=== PATIENT | male | born 1975 ===

== ENCOUNTER 2017-08-29 08:32 | Emergency (ER) | payer MEDICAID ==
[2017-08-29 08:37] VITALS: O2SAT 100
--- NOTE | 2017-08-29 09:16 | C.PDOC ---
History Of Present Illness Patient sts he was cleaning his ears with Q-tip last night. Patient sts he started feeling pressure and pulsation in the right ear, decreased hearing to the right ear and left singh pruritis. Time Seen by Provider: 08/29/17 08:44 Chief Complaint (Nursing): ENT Problem History Per: Patient Onset/Duration Of Symptoms: Days (2) Quality (Ear): denies: Pain W/Touch, Redness, Swelling, Discharge, Foreign Body Pain Scale Rating Of: 2 Past Medical History Reviewed: Historical Data, Nursing Documentation, Vital Signs Vital Signs: Last Vital Signs Temp 98.2 F 08/29/17 08:36 Pulse 78 08/29/17 08:36 Resp 18 08/29/17 08:36 BP 138/89 08/29/17 08:36 Pulse Ox 100 08/29/17 09:16 - Medical History PMH: No Chronic Diseases Family History: States: No Known Family Hx - Social History Hx Alcohol Use: No Hx Substance Use: No - Immunization History Hx Tetanus Toxoid Vaccination: No Hx Influenza Vaccination: No Hx Pneumococcal Vaccination: No Review Of Systems Except As Marked, All Systems Reviewed And Found Negative. ENT: Positive for: Ear Pain (pressure, decreased hearing) Skin: Positive for: Other (pruritis) Physical Exam - Physical Exam Appears: Well, Non-toxic Skin: Normal Color, Rash (left singh with 8x7 cm hyperpigmented plaque with scaling) Head: Atraumatic, Normacephalic Eye(s): bilateral: Normal Inspection Ear(s): Left: Other (partial obscured by wax), Right: TM Obscured By Wax ( completely obscured by wax) Cardiovascular: Rhythm Regular Respiratory: Normal Breath Sounds Gastrointestinal/Abdominal: Soft, No Tenderness Neurological/Psych: Oriented x3, Normal Speech, Normal Cognition ED Course And Treatment O2 Sat by Pulse Oximetry: 100 Progress Note: Patient was referred to Clinic and ENT. Disposition - Disposition Referrals: at [facility] [Outside] George Amin MD [Staff Provider] - Disposition: HOME/ ROUTINE Disposition Time: 09:12 Condition: STABLE Additional Instructions: Follow up with ENT specialist within 1-2 days. Return to ED if feel worse. Prescriptions: Carbamide Peroxide [Debrox Ear Drops] 4 drop AD QID #1 bottle Triamcinolone 0.1% [Triamcinolone Acetonide] 1 appl TP BID #1 tube Instructions: Ear Wax Impaction (DC), Eczema (Atopic Dermatitis) (DC) Forms: [employer] (Vincentian) Print Language: UPPER SORBIAN - Clinical Impression Clinical Impression: Impacted cerumen of right ear, Dermatitis
[2017-08-29 09:34] VITALS: BP 120/82; PULSE 72; RESP 16; TEMP 98.1
== END 2017-08-29 09:34 | disposition home or self-care (01) ==
LOC: C.ER 08:32
DX: H61.21 Impacted cerumen, right ear (principal); L30.9 Dermatitis, unspecified